=== PATIENT | female | born 1955 | race Caucasian/White ===

== ENCOUNTER 2019-03-02 11:42 | Emergency (ER) | payer MEDICARE, OTHER ==
[~2019-03-02] VITALS: Ht 162.6 cm; Wt 89.4 kg
[2019-03-02] MEDS ORDERED: PROZAC20 MG PO (11:51)
[2019-03-02] MEDS ORDERED: LOSARTAN-HCTZ1 EAC3 PO (11:51)
[2019-03-02] MEDS ORDERED: PROAIR HFA8.5 GM INH (11:53)
[2019-03-02 12:28] LABS: ABSOLUTE EOSINOPHILS 0.1 thou/uL (0.0-0.7); ABSOLUTE MONOCYTES 0.6 thou/uL (0.0-1.2); ABSOLUTE NEUTROPHILS 6.3 thou/uL (1.6-8.1); BASOPHILS 0.4 %; EOSINOPHILS 1.7 %; HEMATOCRIT 38.6 % (37.0-47.0); HEMOGLOBIN 13.3 gm/dL (12.0-15.0); LYMPHOCYTES 12.1 %; MCH 31.1 pg (26.0-34.0); MCHC 34.4 g/dL (28.0-37.0); MCV 90.5 fL (80.0-100.0); MONOCYTES 7.5 %; MPV 9.5 fl. (7.2-11.1); NUCLEATED RBCS 0 /100WBC; PLATELET COUNT* 156 thou/uL (150-400); POLYS 78.3 %; RBC 4.27 mil/uL (4.20-5.00); RDW-CV 13.8 % (10.5-14.5)
[2019-03-02 12:38] LABS: PROTIME 10.7 Seconds (9.20-11.50)
[2019-03-02 12:39] LABS: ANION GAP 6 mmol/L (7-16); BUN 12 mg/dL (7-18); CALCIUM 8.9 mg/dL (8.5-10.1); CHLORIDE 104 mmol/L (98-107); CO2 30 mmol/L (21-32); CREATININE 0.7 mg/dL (0.6-1.3); GLUCOSE 105 mg/dL (70-99); SODIUM 140 mmol/L (136-145)
[2019-03-02 12:49] LABS: ALBUMIN 3.5 g/dL (3.4-5.0); ALKALINE PHOSPHATASE 88 U/L (46-116); LIPASE 127 U/L (73-393); NT-PRO BRAIN NAT PEPTIDE 104 pg/mL (<300); SGOT 22 U/L (15-37); SGPT 44 U/L (30-65); TOTAL BILIRUBIN 0.7 mg/dL (<0.1-1.0); TOTAL PROTEIN 6.8 g/dL (6.4-8.2); TROPONIN-I LEVEL <0.06 ng/mL (<0.06)
[2019-03-02] MEDS ORDERED: ZANAFLEX4 MG PO (13:00)
[2019-03-02 13:18] VITALS: BP 164/80
--- NOTE | 2019-03-04 13:07 | EKG ---
[place] [address] ELECTROCARDIOGRAM REPORT Name: WILMA BEE Room: [facility]#: [id number] Admission: 03/02/19 Attend Phys: Discharge: 03/02/19 Date of : 51 Report #: [id number] THIS REPORT FOR: //name// [facility] ED Test Date: 2019-03-02 Test Time: 11:46:10 Pat Name: WILMA BEE Department: Room: Gender: F [employer]: TARA : 1955 Requested By: Scottie Hines Order Number: [id number] MD: Sebastian Watson Measurements Intervals [place] Rate: 69 P: 58 IN: 163 QRS: -1 QRSD: 96 T: 10 QT: 409 QTc: 438 Interpretive Statements Sinus rhythm Left ventricular hypertrophy No previous ECG available for comparison Electronically Signed On 03-04-2019 13:07:34 CDT by Sebastian Watson [email or web address] <ELECTRONICALLY SIGNED> By: Sebastian Watson MD, [facility] 03/04/19 1307 [id number] [id number] Sebastian Watson MD, FACC /EPI
== END 2019-03-02 13:19 | disposition home or self-care (01) ==
LOC: M.ERS 11:42
PROVIDERS: Emergency Medicine
DX: R07.89 Other chest pain (principal)